=== PATIENT | male | born 1955 | race Caucasian/White ===

== ENCOUNTER → 2016-08-25 | Outpatient (CLI) | payer OTHER ==
--- NOTE | 2016-08-25 13:25 | DX ---
Lumbar Spine, 4 Views, Including Bending Views History: Back pain. Right leg numbness. Findings: Five lumbar-type vertebral bodies are visualized. No evidence for fracture. There is mild d isk height narrowing at multiple levels in the lumbar spine, more predominant at L4-L5. No significan t spondylolisthesis with flexion or extension. There is probably a component of underlying congenital spinal stenosis in the lower lumbar spine. Facet hypertrophy and sclerosis is seen at multiple level s, more pronounced at L4-L5 and L5-S1. Impression: Multilevel degenerative disk and degenerative joint disease of the lumbar spine, more pre dominant at L4-L5. Possible component of underlying congenital spinal stenosis.
== END ==
LOC: FIMAGING 11:45
PROVIDERS: ATTEND Neurological Surgery
DX: M51.36 Other intervertebral disc degeneration, lumbar region (principal); M47.816 Spondylosis without myelopathy or radiculopathy, lumbar region; R20.0 Anesthesia of skin